=== PATIENT | female | born 2000 | race Hispanic/Latino ===

== ENCOUNTER 2021-01-25 18:54 | Inpatient (IN) | payer OTHER, MEDICAID ==
--- NOTE | 2021-01-25 20:18 | Event Note ---
Date: 01/25/21 Patient presented to triage w c/o ctx q5 minutes since last night. SVE 3.5//- 1 IBOW noted. Pt reports active FM. Will recheck in 1 hour or sooner if needed.
[2021-01-25] MEDS ORDERED: LACTATED RINGERS 1,000 ML ONE (20:51)
[2021-01-25] MEDS ORDERED: miSOPROStol 200 MCG TAB PR PRN (21:13)
[2021-01-25] MEDS ORDERED: LIDOCAINE (2%) 20 MG/1 ML VIAL 20 ML MDV INFILTRATI ONE (21:13)
[2021-01-25] MEDS ORDERED: METHYLERGONOVINE MALEATE 0.2 MG/ML VIAL IM PRN (21:13)
[2021-01-25] MEDS ORDERED: MINERAL OIL 30 ML ORAL LIQD PO PRN (21:13)
[2021-01-25] MEDS ORDERED: fentaNYL 100 MCG/2 ML INJ IV PRN (21:13)
[2021-01-25] MEDS ORDERED: LOPERAMIDE 2 MG CAP PO PRN (21:13)
[2021-01-25] MEDS ORDERED: OXYTOCIN 10 UNIT/1 ML INJ IM PRN (21:13)
[2021-01-25] MEDS ORDERED: BUTORPHANOL 2 MG/1 ML INJ IV PRN ×2 (21:13)
[2021-01-25] MEDS ORDERED: TERBUTALINE 1 MG/1 ML INJ SUB-Q PRN (21:13)
[2021-01-25] MEDS ORDERED: ONDANSETRON 4 MG/2 ML INJ IV PRN (21:13)
[2021-01-25] MEDS ORDERED: CARBOPROST TROMETHAMINE 250 MCG/1 ML INJ IM PRN (21:13)
[2021-01-25] MEDS ORDERED: AMPICILLIN/NS 2 GM/100 ML 2 GM/100 ML BAG IV ONE (21:13)
[2021-01-25] MEDS ORDERED: ACETAMINOPHEN 325 MG TAB PO PRN (21:13)
[2021-01-25] MEDS ORDERED: ePHEDrine SULFATE 50 MG/1 ML INJ IV PRN ×2 (21:13→21:42)
[2021-01-25] MEDS ORDERED: LACTATED RINGERS 1,000 ML IV SCH (21:15)
--- NOTE | 2021-01-25 21:28 | History and Physical Report ---
History of Present Illness Date of examination: 01/25/21 Chief complaint: contractions History of present illness: EDC Confirmation: 01/30/2021 Past History : 2 Term Births: 0 Premature Births: 0 Living Children: 0 Para: 0 Mult. Births: 0 Prev : 0 Prev. attempt? 0 Aborta: 1 Elect. Ab: 0 Spont. Ab: 0 Ectopics: 0 # 1 Delivery date: 06/02/2020 Delivery type: SAB Past Medical History: Reviewed history from 08/14/2020 and no changes required: Anxiety Past Surgical History: Reviewed history from 06/05/2020 and no changes required: Negative Past Surgical History Family History Summary: Reviewed history and no changes required: 08/17/2020 Other Family Member - Has No Family History of Uterine Cancer - Entered On: 08/15/2020 Other Family Member - Has No Family History of Small Bowel Cancer - Entered On: 08/15/2020 Other Family Member - Has No Family History of Stomach Cancer - Entered On: 08/15/2020 Other Family Member - Has No Family History of Pancreatic Cancer - Entered On: 08/15/2020 Other Family Member - Has No Family History of Ovarvian Cancer - Entered On: 08/15/2020 Other Family Member - Has No Family History of Kidney/Urinary Tract Cancer - Entered On: 08/15/2020 Other Family Member - Has No Family History of Spontaneous DVT-PE - Entered On: 08/15/2020 Other Family Member - Has No Family History of Colon Cancer - Entered On: 08/15/2020 Other Family Member - Has No Family History of Brain Cancer - Entered On: 08/15/2020 Other Family Member - Has No Family History of Biliary Tract Cancer - Entered On: 08/15/2020 MGF - Has Family History of Skin Cancer - Entered On: 08/15/2020 MGF - Has Family History of Lung Cancer - Entered On: 08/15/2020 PGM - Has Family History Breast Cancer - Entered On: 08/15/2020 PGM - Has Family History of Cervical Cancer - Entered On: 08/15/2020 Social History: Reviewed history from 08/14/2020 and no changes required: Patient is single Smoking History: Patient has never smoked. 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 Infection History Hx of STD: none HIV Risk Eval: no Personal hx. of genital herpes: no Rash, Viral, or Febrile illness since last LMP? no Varicella/Chicken Pox Status: Immunized TB Risk: no Genetic History Congenital Heart Defect: Mom: no Dad: no Gracia Disease: Mom: no Dad: no Thalassemia Mom: no Dad: no Neural Tube Defect Mom: no Dad: no Down's Syndrome Mom: no Dad: no Brant-Sachs Mom: no Dad: no Sickle Cell Disease/Trait Mom: no Dad: no Hemophilia Mom: no Dad: no Muscular Dystrophy Mom: no Dad: no Cystic Fibrosis Mom: no Dad: no Coffee Chorea Mom: no Dad: no Mental Retardation Mom: no Dad: no Fragile X Mom: no Dad: no Other Genetic/Chromosomal Disorder Mom: no Dad: no Child w/other defect Mom: no Dad: no Enviromental Exposures Enviromental Exposures Reviewed Xray Exposure: no Medication, drug, or alcohol use since LMP: no Chemical/Other Exposure: no Exposure to Cat Liter: no Hx of Parvovirus (Fifth Disease): no Occupational Exposure to Children: none Comments: Working Past History Past Medical History: other (anxiety) Past Surgical History: no surgical history 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: other (see HPI) Family/Genetic History: other (see HPI) Social history: no significant social history - Obstetrical History Expected Date of Delivery: 01/30/21 Actual Gestation: 39 Week(s) 2 Day(s) : 2 Para: 0 Hx # Term Pregnancies: 0 Number of Pregnancies: 0 Spontaneous Abortions: 1 Induced : 0 Number of Living Children: 0 Medications and Allergies Allergies Allergy/AdvReac Type Severity Reaction Status Date / Time No Known Allergies Allergy Unverified 01/25/21 19:34 Active Meds: Active Medications Ephedrine Sulfate (Ephedrine Sulfate 50 Mg/1 Ml Inj) 10 mg IV Q2M PRN PRN Reason: Hypotension Oxytocin/Sodium Chloride (Pitocin/Ns 30 Unit/500ml) 30 units in 500 mls @ 2 mls/hr IV TITR WILDER; Protocol Lactated Ringer's (Lactated Ringers) 1,000 mls @ 125 mls/hr IV DIRECT WILDER Oxytocin/Sodium Chloride (Pitocin/Ns 30 Unit/500ml) 30 units in 500 mls @ 40 mls/hr IV TITR WILDER; Protocol Mineral Oil (Mineral Oil 30 Ml Oral Liqd) 30 ml PO QHS PRN PRN Reason: Constipation Oxytocin (Oxytocin 10 Unit/1 Ml Inj) 10 unit IM ONCE PRN PRN Reason: Uterine Bleeding Terbutaline Sulfate (Terbutaline 1 Mg/1 Ml Inj) 0.25 mg SUB-Q ONCE PRN PRN Reason: Hyperstimulation/Hypertonicity Review of Systems All systems: negative - Vital Signs Vital signs: Vital Signs Temp Pulse Resp BP 98.1 F 67 16 121/73 01/25/21 19:42 01/25/21 19:42 01/25/21 19:42 01/25/21 19:42 Temp Pulse Resp BP Pulse Ox 98.1 F 67 16 121/73 01/25/21 19:42 01/25/21 19:42 01/25/21 19:42 01/25/21 19:42 - Physical Exam Breasts: Positive: normal Cardiovascular: Regular rate Lungs: Positive: Normal air movement Abdomen: Positive: normal appearance, soft Genitourinary (Female): Positive: normal external genitalia, normal perenium Vulva: both: normal Vagina: Positive: normal moisture Uterus: Positive: normal size, normal contour Anus/Rectum: Positive: normal perianal skin Extremities: Positive: normal Deep Tendon Reflex Grade: Normal +2 - Obstetrical FHR: category 1 Uterine Contraction Monitor Mode: External Cervical Dilatation: 5 Cervical Effacement Percentage: 100 station: 0 Uterine Contraction Pattern: Regular Uterine Tone Measurement Phase: Contraction Uterine Contraction Intensity: Strong/Firm Results All other labs normal. Assessment and Plan 20y/o @ 39+2 arrived in active labor, changing her cervix from 3/90/-1 to 5/100/0. GBS +. RH neg - Patient Problems (1) 39 weeks gestation of Current Visit: Yes Status: Acute (2) GBS (group B Streptococcus carrier), +RV culture, currently Current Visit: Yes Status: Acute Plan to address problem: Ampicillin 2gm IVPB q4hr until delivery (3) Active labor at term Current Visit: Yes Status: Acute Plan to address problem: admission orders in EMR Epidural PRN Anticipate (4) Rh negative status during Current Visit: Yes Status: Acute Qualifiers: Trimester: third trimester Qualified Code(s): O26.893 - Other specified related conditions, third trimester; Z67.91 - Unspecified blood type, Rh negative Plan to address problem: Rhogam if indicated
[2021-01-25] MEDS ORDERED: NALOXONE 2 MG/2 ML INJ IV PRN (21:42)
--- NOTE | 2021-01-25 21:42 | Anesthesia Consultation ---
Anesthesia Consult and Med Hx Date of service: 01/25/21 - Airway Anesthetic Teeth Evaluation: Good ROM Head & Neck: Adequate Mental/Hyoid Distance: Adequate Mallampati Class: Class II Intubation Access Assessment: Probably Good - Pulmonary Exam CTA: Yes - Cardiac Exam Cardiac Exam: RRR - Pre-Operative Health Status ASA Pre-Surgery Classification: ASA2 Proposed Anesthetic Plan: Epidural - Pulmonary Hx Asthma: No - Cardiovascular System Hx Hypertension: No - Central Nervous System Hx Seizures: No Hx Psychiatric Problems: No - Endocrine Hx Renal Disease: No Hx Hypothyroidism: No Hx Hyperthyroidism: No - Hematic Hx Anemia: No Hx Sickle Cell Disease: No - Other Systems Hx Alcohol Use: No
[2021-01-25] MEDS ORDERED: fentaNYL-BUPIV 2 MCG/ML-0.125% 200 MCG/100 ML BAG EPIDURAL SCH (22:00)
[2021-01-25] MEDS ORDERED: OXYTOCIN DRIP 30 UNITS/500 ML BAG IV SCH ×2 (22:00)
[2021-01-25 22:14] LABS: Hematocrit 40.7 % (30.3-42.9); Mean Corpuscular HGB Conc 34 % (30-34); Mean Corpuscular Volume 98 fl (79-97); Platelet Count 117 K/mm3 (140-440); Red Blood Count 4.14 M/mm3 (3.65-5.03); Red Cell Distribution Width 12.8 % (13.2-15.2)
--- NOTE | 2021-01-25 23:06 | Progress Note ---
Labor Epidural - Labor Epidural Start Time: 22:56 Stop Time: 23:00 Performed by:: JASMINA SANCHEZ Procedure: Patient is requesting epidural for labor pain. H&P, and labs reviewed. Procedure explained, questions answered, consent obtained. Patient in sitting position with blood pressure cuff and pulse ox on and working. Timeout performed immediately before start of procedure. Sterile chlorahexadine 0.5% prep/drape. 3 mL 1% lidocaine skin wheal at L[3]-L[4]. 18-gauge Airphrametead epidural needle advanced to [id number] with saline at [7] cm. 27-gauge spinal needle advanced until clear, free-flowing CSF. Intrathecal dexmedetomidine [5] mcg administered and needle removed. Epidural catheter advanced to [12] cm, negative aspiration for blood and csf, negative test dose 3 ml 1.5% lidocaine with epinephrine. Sterile steri-strips and tegaderm applied, followed by tape reinforcement. Patient tolerated procedure well.
[2021-01-26] MEDS ORDERED: AMPICILLIN/NS 1 GM/50 ML 1 GM/50 ML BAG IV SCH (02:00)
--- NOTE | 2021-01-26 03:25 | Procedure Note ---
OB Delivery Note - Delivery Date of Delivery: 01/26/21 ( rohit girl - Misti) Electrical Accessories Assembler: DENNISE COFFMAN Estimated blood loss: 200cc - Vaginal Delivery presentation: vertex Delivery position: OA (STEVEN) Intrapartum events: meconium Delivery induction: none Delivery monitor: external FHT, external uterine Route of delivery: Delivery placenta: spontaneous Delivery cord: nuchal cord, 3 umbilical vessels Episiotomy: none Delivery laceration: none Anesthesia: epidural Delivery comments: baby girl birthed over intact perineum, no lacs to repair. Skin to skin while 3 vessel cord continued pulsing. cord blood collected. all counts correct. mother and baby LDR stable. - Infant A at 1 minute: 8 at 5 minutes: 9 Gender: Female
[2021-01-26] MEDS ORDERED: MAGNESIUM HYDROXIDE (MOM) ORAL LIQD UDC PO PRN (05:08)
[2021-01-26] MEDS ORDERED: PROMETHAZINE 25 MG TAB PO PRN (05:08)
[2021-01-26] MEDS ORDERED: diphenhydrAMINE 25 MG CAP PO PRN (05:08)
[2021-01-26] MEDS ORDERED: WITCH HAZEL/ GLYCERIN PAD TP PRN (05:08)
[2021-01-26] MEDS ORDERED: LANOLIN/ZINC/DIMETHICONE (LANSINOH) 7 GM TP PRN (05:08)
[2021-01-26] MEDS ORDERED: ONDANSETRON 4 MG/2 ML INJ IV PRN (05:08)
[2021-01-26] MEDS: IBUPROFEN 600 MG TAB PO SCH ×3 (05:41→18:04)
[2021-01-26] MEDS: DOCUSATE SODIUM 100 MG CAP PO SCH ×2 (10:05→22:13)
[2021-01-26] MEDS: PRENATAL VIT27-FE FUMARATE-FOLIC ACID VIT TAB PO SCH (10:06)
[2021-01-26] MEDS: FERROUS SULFATE 325 MG TAB PO SCH ×2 (10:06→22:13)
--- NOTE | 2021-01-26 13:03 | Progress Note ---
Assessment and Plan Pt sitting up in bed, holding swaddled infant, with family at bedside. Pt reports ambulating, voiding, and eating well; denies complaints at this time. POC and precautions reviewed - Patient Problems (1) (normal spontaneous vaginal delivery) Current Visit: Yes Status: Acute (2) Rh negative status during Current Visit: Yes Status: Acute Qualifiers: Trimester: third trimester Qualified Code(s): O26.893 - Other specified related conditions, third trimester; Z67.91 - Unspecified blood type, Rh negative (3) Thrombocytopenia Current Visit: Yes Status: Acute Subjective - Subjective Date of service: 01/26/21 Principal diagnosis: PP Patient reports: appetite normal, voiding normally, pain well controlled, ambulating normally : doing well Objective - Vital Signs Latest vital signs: Vital Signs Temp Pulse Resp BP BP Pulse Ox 01/26/21 12:02 98.0 F 61 18 137/84 99 01/26/21 07:51 98.1 F 57 L 18 134/79 99 01/26/21 05:25 99.0 F 72 20 133/66 100 01/26/21 04:48 101 H 66 L 01/26/21 04:45 62 133/86 01/26/21 04:44 62 98 01/26/21 04:39 65 97 01/26/21 04:34 64 97 01/26/21 04:30 61 136/86 01/26/21 04:29 58 L 98 01/26/21 04:24 68 99 01/26/21 04:19 71 98 01/26/21 04:15 72 134/84 01/26/21 04:14 70 98 01/26/21 04:09 75 98 01/26/21 04:04 73 98 01/26/21 04:00 66 131/74 01/26/21 03:59 84 98 01/26/21 03:54 91 H 99 01/26/21 03:49 85 97 01/26/21 03:45 118 H 152/96 01/26/21 03:44 123 H 100 01/26/21 03:40 85 94 01/26/21 03:39 78 97 01/26/21 03:34 86 98 01/26/21 03:31 98.2 F 77 16 153/69 01/26/21 03:29 92 H 98 01/26/21 03:24 88 98 01/26/21 03:19 107 H 96 01/26/21 03:14 85 100 01/26/21 03:12 99 H 91 01/26/21 03:09 110 H 97 01/26/21 03:05 73 85 01/26/21 03:04 73 97 01/26/21 02:59 123 H 98 01/26/21 02:54 84 99 01/26/21 02:49 136 H 95 01/26/21 02:44 70 100 01/26/21 02:39 76 100 01/26/21 02:34 63 99 01/26/21 02:29 63 100 01/26/21 02:24 51 L 100 01/26/21 02:19 55 L 100 01/26/21 02:14 61 98 01/26/21 02:09 50 L 100 01/26/21 02:04 56 L 100 01/26/21 01:59 50 L 98 01/26/21 01:54 47 L 99 01/26/21 01:49 50 L 99 01/26/21 01:45 46 L 116/68 01/26/21 01:44 48 L 98 01/26/21 01:39 47 L 99 01/26/21 01:34 47 L 99 01/26/21 01:29 51 L 100 01/26/21 01:24 78 97 01/26/21 01:19 49 L 98 01/26/21 01:16 51 L 136/78 01/26/21 01:14 50 L 99 01/26/21 01:09 51 L 98 01/26/21 01:04 52 L 97 01/26/21 00:59 52 L 98 01/26/21 00:54 57 L 98 01/26/21 00:49 62 98 01/26/21 00:44 78 98 01/26/21 00:39 53 L 97 01/26/21 00:34 54 L 97 01/26/21 00:29 57 L 99 01/26/21 00:24 49 L 114/55 97 01/26/21 00:19 50 L 97 01/26/21 00:15 49 L 125/73 01/26/21 00:14 49 L 97 01/26/21 00:09 49 L 98 01/26/21 00:04 49 L 96 01/25/21 23:59 51 L 97 01/25/21 23:54 51 L 96 01/25/21 23:49 50 L 97 01/25/21 23:46 50 L 101/53 01/25/21 23:44 53 L 97 01/25/21 23:39 51 L 97 01/25/21 23:35 97.4 F L 16 01/25/21 23:34 54 L 102/57 96 01/25/21 23:29 55 L 97 01/25/21 23:24 53 L 97 01/25/21 23:19 58 L 97 01/25/21 23:14 54 L 116/69 97 01/25/21 23:10 56 L 118/64 01/25/21 23:09 56 L 98 01/25/21 23:08 56 L 120/59 01/25/21 23:06 50 L 123/58 01/25/21 23:04 56 L 132/62 99 01/25/21 23:02 64 143/66 01/25/21 22:59 59 L 98 01/25/21 22:57 74 159/65 01/25/21 22:55 59 L 134/73 01/25/21 22:54 62 100 01/25/21 22:49 69 97 01/25/21 22:44 57 L 97 01/25/21 22:39 80 98 01/25/21 22:36 69 94 01/25/21 22:34 63 100 01/25/21 22:29 54 L 96 01/25/21 22:24 72 98 01/25/21 22:09 18 01/25/21 22:08 71 122/68 01/25/21 19:42 98.1 F 67 16 121/73 Intake and Output 01/25/21 01/26/21 01/26/21 23:59 07:59 15:59 Output Total 500 Balance -500 Output: Urine 500 Void 500 Other: Total, Output Amount 500 # Voids Void 1 1 Weight 120 lb Estimated Blood Loss 200 - Exam Breasts: Present: normal Cardiovascular: Present: Regular rate Lungs: Present: Normal air movement Abdomen: Present: normal appearance, soft Vulva: both: normal Uterus: Present: normal, firm, fundal height below umbilicus Extremities: Present: normal - Labs Labs: Abnormal lab results 01/25/21 Range/Units 21:08 WBC 13.5 H (4.5-11.0) K/mm3 MCV 98 H (79-97) fl MCH 34 H (28-32) pg RDW 12.8 L (13.2-15.2) % Plt Count 117 L (140-440) K/mm3
[2021-01-26 16:17] LABS: Hematocrit 37.2 % (30.3-42.9); Hemoglobin 12.7 gm/dl (10.1-14.3)
--- NOTE | 2021-01-26 21:55 | Post Anesthesia Evaluation ---
- Post Anesthesia Evaluation Patient Participated: Yes Airway Patent: Yes Stable Respiratory Function: Yes Nausea/Vomiting: No Temp > 96.8F: Yes Pain Manageable: Yes Adequeate Hydration: Yes Anesthesia Complications: No Block Receding Appropriately: Yes
[2021-01-27] MEDS ORDERED: TETANUS,DIPH,PERTUSS(ACELL) VACCINE 0.5 ML SYRINGE IM ONE (06:00)
[2021-01-27] MEDS: DOCUSATE SODIUM 100 MG CAP PO SCH ×2 (09:36→23:03)
[2021-01-27] MEDS: FERROUS SULFATE 325 MG TAB PO SCH ×2 (09:36→23:02)
[2021-01-27] MEDS: PRENATAL VIT27-FE FUMARATE-FOLIC ACID VIT TAB PO SCH (09:36)
[2021-01-27] MEDS: IBUPROFEN 600 MG TAB PO SCH ×2 (09:37→23:02)
--- NOTE | 2021-01-27 11:15 | Discharge Summary ---
Providers - Providers Date of Admission: 01/25/21 21:13 Date of discharge: 01/27/21 (desires d/c home) Attending physician: MORIS JUAREZ 01/26/21 05:08 Consult to Grain [employer] [CONS] Routine Reason For Exam: assistance with , SNS Primary care physician: MORIS JUAREZ Hospitalization Reason for admission: Labor Condition: Good Pertinent studies: post delivery H&H 12.7/37.2 Procedures: Hospital course: uncomplicated and course Disposition: DC-01 TO HOME OR SELFCARE Final Discharge Diagnosis (Prints w/discharge instructions): Time spent for discharge: 15 - Discharge Diagnoses (1) (normal spontaneous vaginal delivery) Status: Acute Core Measure Documentation - Palliative Care Palliative Care/ Comfort Measures: Not Applicable - Core Measures Any of the following diagnoses?: none Exam - Constitutional Vitals: Temp Pulse Resp BP Pulse Ox 97.9 F 66 16 126/84 97 01/27/21 07:59 01/27/21 07:59 01/27/21 07:59 01/27/21 07:59 01/27/21 07:59 General appearance: Present: no acute distress, well-nourished - EENT Eyes: Present: PERRL ENT: hearing intact, clear oral mucosa - Neck Neck: Present: supple, normal ROM - Respiratory Respiratory effort: normal Respiratory: bilateral: CTA - Cardiovascular Rhythm: regular Heart Sounds: Absent: rub, click - Extremities Extremities: No edema Peripheral Pulses: within normal limits - Abdominal General gastrointestinal: Present: soft, non-tender, non-distended, normal bowel sounds Female genitourinary: Present: normal - Integumentary Integumentary: Present: clear, warm, dry - Musculoskeletal Musculoskeletal: gait normal, strength equal bilaterally - Psychiatric Psychiatric: appropriate mood/affect, intact judgment & insight - Neurologic Neurologic: CNII-XII intact, moves all extremities - Additional findings Additional findings: lochia scant, fundus firm, VSSAF, Plan Activity: no restrictions Diet: regular Follow up with: MORIS JUAREZ MD [Primary Care Provider] - 02/26/21 (Congratulations!! Please call [phone] to schedule your visit in 4 weeks. Call for any questions or concerns. )
[2021-01-27] MEDS ORDERED: LACTATED RINGERS 1,000 ML ONE (14:38)
[2021-01-27] MEDS ORDERED: MAGNESIUM SULFATE 40GM/1000ML 40 GM/1,000 ML BAG IV ONE (14:39)
[2021-01-27] MEDS ORDERED: MAGNESIUM SULFATE 4 GM/100 ML BAG IV ONE ×2 (14:39→15:00)
[2021-01-27] MEDS ORDERED: LACTATED RINGERS 1,000 ML IV SCH (14:45)
--- NOTE | 2021-01-27 14:53 | Event Note ---
Date: 01/27/21 received call from nurse that pt's blood pressure is elevated 160's/90's- 100's. Pt reported some chest heaviness earlier that has since resolved. She denies CLEMENT, visual changes or epigastric pain. Discussed with patient concern over pre-e. will cancel discharge and transfer patient to L&D for mag sulfate x24 hrs. pre-e labs ordered. all questions addressed, pt verbalizes understanding. L&D charge nurse informed of need to transfer.
[2021-01-27 16:09] LABS: Hematocrit 39.4 % (30.3-42.9); Hemoglobin 13.4 gm/dl (10.1-14.3); Mean Corpuscular HGB Conc 34 % (30-34); Mean Corpuscular Volume 99 fl (79-97); Platelet Count 107 K/mm3 (140-440); Red Blood Count 3.98 M/mm3 (3.65-5.03); Red Cell Distribution Width 13.1 % (13.2-15.2)
[2021-01-27 16:12] LABS: Alanine Aminotransferase 8 units/L (7-56); Uric Acid 5.1 mg/dL (3.5-7.6)
[2021-01-27] MEDS: MAGNESIUM SULFATE 40GM/1000ML 40 GM/1,000 ML BAG IV SCH (17:20)
[2021-01-28] MEDS: IBUPROFEN 600 MG TAB PO SCH ×3 (05:48→18:06)
[2021-01-28] MEDS: FERROUS SULFATE 325 MG TAB PO SCH (10:52)
[2021-01-28] MEDS: DOCUSATE SODIUM 100 MG CAP PO SCH (10:53)
[2021-01-28] MEDS: PRENATAL VIT27-FE FUMARATE-FOLIC ACID VIT TAB PO SCH (10:53)
--- NOTE | 2021-01-28 13:00 | Progress Note ---
Assessment and Plan patient reports feeling well, no complaints. She denies CLEMENT, visual changes or epigastric pain. b/p's much improved over yesterday. Mag level this AM 7.4, mag decreased to 1 gm/hr. Will continue mag sulfate until 1600 and consider d/c home this evening if b/p's remain NL. Pt will keep appointment Friday for blood pressure check. - Patient Problems (1) (normal spontaneous vaginal delivery) Current Visit: Yes Status: Acute (2) Pre-eclampsia in period Current Visit: Yes Status: Acute (3) Anxiety Current Visit: Yes Status: Acute Plan to address problem: hx Anxiety, previous use of Paxil Discussed restarting medication risks/benefits reviewed with , patient would like to restart medication. Subjective - Subjective Date of service: 01/28/21 Principal diagnosis: day #3; pre-e Interval history: EDC Confirmation: 01/30/2021 Past History : 2 Term Births: 0 Premature Births: 0 Living Children: 0 Para: 0 Mult. Births: 0 Prev : 0 Prev. attempt? 0 Aborta: 1 Elect. Ab: 0 Spont. Ab: 0 Ectopics: 0 # 1 Delivery date: 06/02/2020 Delivery type: SAB Past Medical History: Reviewed history from 08/14/2020 and no changes required: Anxiety Past Surgical History: Reviewed history from 06/05/2020 and no changes required: Negative Past Surgical History Family History Summary: Reviewed history and no changes required: 08/17/2020 Other Family Member - Has No Family History of Uterine Cancer - Entered On: 08/15/2020 Other Family Member - Has No Family History of Small Bowel Cancer - Entered On: 08/15/2020 Other Family Member - Has No Family History of Stomach Cancer - Entered On: 08/15/2020 Other Family Member - Has No Family History of Pancreatic Cancer - Entered On: 08/15/2020 Other Family Member - Has No Family History of Ovarvian Cancer - Entered On: 08/15/2020 Other Family Member - Has No Family History of Kidney/Urinary Tract Cancer - Entered On: 08/15/2020 Other Family Member - Has No Family History of Spontaneous DVT-PE - Entered On: 08/15/2020 Other Family Member - Has No Family History of Colon Cancer - Entered On: 08/15/2020 Other Family Member - Has No Family History of Brain Cancer - Entered On: 08/15/2020 Other Family Member - Has No Family History of Biliary Tract Cancer - Entered On : 08/15/2020 MGF - Has Family History of Skin Cancer - Entered On: 08/15/2020 MGF - Has Family History of Lung Cancer - Entered On: 08/15/2020 PGM - Has Family History Breast Cancer - Entered On: 08/15/2020 PGM - Has Family History of Cervical Cancer - Entered On: 08/15/2020 Social History: Reviewed history from 08/14/2020 and no changes required: Patient is single Smoking History: Patient has never smoked. 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 Infection History Hx of STD: none HIV Risk Eval: no Personal hx. of genital herpes: no Rash, Viral, or Febrile illness since last LMP? no Varicella/Chicken Pox Status: Immunized TB Risk: no Genetic History Congenital Heart Defect: Mom: no Dad: no Gracia Disease: Mom: no Dad: no Thalassemia Mom: no Dad: no Neural Tube Defect Mom: no Dad: no Down's Syndrome Mom: no Dad: no Brant-Sachs Mom: no Dad: no Sickle Cell Disease/Trait Mom: no Dad: no Hemophilia Mom: no Dad: no Muscular Dystrophy Mom: no Dad: no Cystic Fibrosis Mom: no Dad: no Ciales Chorea Mom: no Dad: no Mental Retardation Mom: no Dad: no Fragile X Mom: no Dad: no Other Genetic/Chromosomal Disorder Mom: no Dad: no Child w/other defect Mom: no Dad: no Enviromental Exposures Enviromental Exposures Reviewed Xray Exposure: no Medication, drug, or alcohol use since LMP: no Chemical/Other Exposure: no Exposure to Cat Liter: no Hx of Parvovirus (Fifth Disease): no Occupational Exposure to Children: none Comments: Working Patient reports: appetite normal, pain well controlled : doing well, bottle feeding (breast and bottle feeding) Objective - Vital Signs Latest vital signs: Vital Signs Temp Pulse Resp BP BP Pulse Ox 01/28/21 12:51 93 H 98 01/28/21 12:46 90 98 01/28/21 12:41 98 H 97 01/28/21 12:38 97.7 F 18 98 01/28/21 12:36 97 H 99 01/28/21 12:34 18 01/28/21 12:31 93 H 99 01/28/21 12:26 87 99 01/28/21 12:21 81 99 01/28/21 12:19 89 131/89 01/28/21 12:16 85 99 01/28/21 12:11 87 99 01/28/21 12:06 87 98 01/28/21 12:01 85 99 01/28/21 11:56 85 98 01/28/21 11:51 87 99 01/28/21 11:46 93 H 99 01/28/21 11:41 94 H 98 01/28/21 11:36 86 99 01/28/21 11:31 79 98 01/28/21 11:26 79 98 01/28/21 11:21 88 99 01/28/21 11:19 82 121/82 01/28/21 11:16 77 98 01/28/21 11:11 79 99 01/28/21 11:06 77 99 01/28/21 11:01 83 99 01/28/21 10:56 79 99 01/28/21 10:51 74 98 01/28/21 10:46 73 99 01/28/21 10:41 81 99 01/28/21 10:36 78 98 01/28/21 10:31 76 98 01/28/21 10:26 79 98 01/28/21 10:21 77 98 01/28/21 10:19 83 123/61 01/28/21 10:16 81 98 01/28/21 10:11 82 98 01/28/21 10:06 91 H 98 01/28/21 10:01 80 98 01/28/21 09:56 85 98 01/28/21 09:51 80 98 01/28/21 09:46 79 98 01/28/21 09:41 75 98 01/28/21 09:36 75 98 01/28/21 09:31 79 98 01/28/21 09:26 85 98 01/28/21 09:21 81 98 01/28/21 09:19 83 117/66 01/28/21 09:16 87 99 01/28/21 09:11 87 99 01/28/21 09:06 88 99 01/28/21 09:01 91 H 99 01/28/21 08:56 84 98 01/28/21 08:51 81 99 01/28/21 08:46 77 98 01/28/21 08:41 78 98 01/28/21 08:36 78 98 01/28/21 08:31 81 99 01/28/21 08:26 74 98 01/28/21 08:21 74 98 01/28/21 08:19 70 121/74 01/28/21 08:16 71 98 01/28/21 08:11 73 98 01/28/21 08:06 77 98 01/28/21 08:01 74 98 01/28/21 08:00 97.6 F 16 98 01/28/21 07:56 89 97 01/28/21 07:51 73 97 01/28/21 07:46 74 97 01/28/21 07:41 75 97 01/28/21 07:36 74 97 01/28/21 07:31 74 97 01/28/21 07:26 73 98 01/28/21 07:21 72 98 01/28/21 07:19 72 119/77 01/28/21 07:16 75 97 01/28/21 07:11 77 97 01/28/21 07:06 78 98 01/28/21 07:01 77 98 01/28/21 06:56 80 98 01/28/21 06:51 79 97 01/28/21 06:46 74 98 01/28/21 06:41 72 98 01/28/21 06:36 75 98 01/28/21 06:31 77 98 01/28/21 06:26 85 99 01/28/21 06:21 93 H 99 01/28/21 06:19 80 136/78 01/28/21 06:16 75 98 01/28/21 06:11 78 98 01/28/21 06:06 79 98 01/28/21 06:00 92 H 99 01/28/21 05:56 88 99 01/28/21 05:51 87 99 01/28/21 05:46 89 99 01/28/21 05:41 90 99 01/28/21 05:35 91 H 99 01/28/21 05:31 78 98 01/28/21 05:26 82 98 01/28/21 05:21 90 99 01/28/21 05:19 80 134/82 01/28/21 05:16 73 98 01/28/21 05:11 76 99 01/28/21 05:06 99 H 99 01/28/21 05:00 98 H 100 01/28/21 04:55 81 100 01/28/21 04:50 91 H 100 01/28/21 04:46 88 100 01/28/21 04:41 73 99 01/28/21 04:36 72 99 01/28/21 04:31 73 99 01/28/21 04:25 76 99 01/28/21 04:20 87 99 01/28/21 04:19 98 H 128/88 01/28/21 04:15 75 99 01/28/21 04:10 76 99 01/28/21 04:05 79 99 01/28/21 04:00 82 98 01/28/21 03:55 104 H 98 01/28/21 03:50 89 99 01/28/21 03:45 84 98 01/28/21 03:40 91 H 99 01/28/21 03:35 87 99 01/28/21 03:30 77 99 01/28/21 03:25 72 99 01/28/21 03:20 71 99 01/28/21 03:19 71 113/64 01/28/21 03:15 70 99 01/28/21 03:10 71 99 01/28/21 03:05 80 98 01/28/21 03:00 74 100 01/28/21 02:55 68 99 01/28/21 02:50 68 99 01/28/21 02:45 68 99 01/28/21 02:40 68 99 01/28/21 02:35 67 99 01/28/21 02:30 70 98 01/28/21 02:25 70 98 01/28/21 02:20 66 99 01/28/21 02:19 71 120/69 01/28/21 02:15 69 98 01/28/21 02:10 70 98 01/28/21 02:05 70 98 01/28/21 02:00 70 98 01/28/21 01:55 72 98 01/28/21 01:50 77 98 01/28/21 01:45 74 98 01/28/21 01:40 90 98 01/28/21 01:35 93 H 98 01/28/21 01:30 79 98 01/28/21 01:25 66 98 01/28/21 01:20 67 98 01/28/21 01:19 66 112/65 01/28/21 01:15 67 99 01/28/21 01:10 68 98 01/28/21 01:05 84 100 01/28/21 01:00 73 98 01/28/21 00:55 78 98 01/28/21 00:50 82 118/68 99 01/28/21 00:45 85 99 01/28/21 00:40 72 98 01/28/21 00:35 75 98 01/28/21 00:30 73 99 01/28/21 00:25 84 99 01/28/21 00:20 70 98 01/28/21 00:19 71 122/67 01/28/21 00:15 71 98 01/28/21 00:10 69 98 01/28/21 00:05 77 98 01/28/21 00:00 73 98 01/27/21 23:55 74 98 01/27/21 23:50 77 98 01/27/21 23:45 79 98 01/27/21 23:40 81 98 01/27/21 23:35 80 98 01/27/21 23:30 83 98 01/27/21 23:25 88 99 01/27/21 23:20 96 H 99 01/27/21 23:19 93 H 147/86 01/27/21 23:15 92 H 99 01/27/21 23:10 100 H 99 01/27/21 23:05 94 H 99 01/27/21 23:00 98.3 F 101 H 99 01/27/21 22:55 95 H 98 01/27/21 22:50 103 H 98 01/27/21 22:45 98 H 99 01/27/21 22:40 94 H 99 01/27/21 22:35 97 H 99 01/27/21 22:30 98 H 98 01/27/21 22:25 101 H 99 01/27/21 22:20 96 H 99 01/27/21 22:19 98 H 147/89 01/27/21 22:15 95 H 99 01/27/21 22:10 99 H 99 01/27/21 22:05 102 H 99 01/27/21 22:00 98 H 99 01/27/21 21:55 96 H 99 01/27/21 21:50 99 H 99 01/27/21 21:45 91 H 99 01/27/21 21:40 92 H 100 01/27/21 21:35 105 H 99 01/27/21 21:30 93 H 100 01/27/21 21:25 97 H 99 01/27/21 21:20 92 H 99 01/27/21 21:19 89 138/91 01/27/21 21:15 90 99 01/27/21 21:10 101 H 100 01/27/21 21:05 92 H 100 01/27/21 21:00 83 100 01/27/21 20:55 97 H 100 01/27/21 20:50 98 H 99 01/27/21 20:45 93 H 100 01/27/21 20:40 96 H 99 01/27/21 20:35 90 100 01/27/21 20:30 86 100 01/27/21 20:25 73 99 01/27/21 20:20 74 100 01/27/21 20:19 77 132/78 01/27/21 20:15 92 H 100 01/27/21 20:10 79 99 01/27/21 20:05 82 100 01/27/21 20:00 96 H 100 01/27/21 19:55 87 99 01/27/21 19:50 86 99 01/27/21 19:45 83 99 01/27/21 19:40 90 99 01/27/21 19:35 86 100 01/27/21 19:30 86 99 01/27/21 19:25 91 H 100 01/27/21 19:20 89 100 01/27/21 19:19 81 132/73 01/27/21 19:17 98.0 F 01/27/21 19:15 84 100 01/27/21 19:10 94 H 99 01/27/21 19:05 72 99 01/27/21 19:00 77 99 01/27/21 18:59 97.9 F 76 12 135/83 99 01/27/21 18:57 76 135/83 01/27/21 18:55 77 100 01/27/21 18:50 74 99 01/27/21 18:45 61 98 01/27/21 18:40 60 98 01/27/21 18:35 66 99 01/27/21 18:30 69 99 01/27/21 18:25 80 99 01/27/21 18:20 75 99 01/27/21 18:15 81 99 01/27/21 18:10 75 99 01/27/21 18:06 74 138/94 01/27/21 18:05 76 99 01/27/21 18:00 72 18 99 01/27/21 17:55 81 100 01/27/21 17:51 68 137/87 01/27/21 17:50 69 100 01/27/21 17:45 80 99 01/27/21 17:40 75 99 01/27/21 17:36 69 137/90 01/27/21 17:35 78 99 01/27/21 17:30 78 99 01/27/21 17:25 88 98 01/27/21 17:20 71 99 01/27/21 17:18 69 148/88 01/27/21 17:15 77 99 01/27/21 17:13 86 139/80 01/27/21 17:10 92 H 99 01/27/21 17:08 116 H 145/98 01/27/21 17:05 79 100 01/27/21 17:03 60 141/86 01/27/21 17:00 98.5 F 79 16 141/86 99 01/27/21 16:58 61 143/86 01/27/21 16:55 61 99 01/27/21 16:53 62 148/88 01/27/21 16:50 64 100 01/27/21 16:45 68 158/97 100 01/27/21 16:40 64 100 01/27/21 16:35 70 99 01/27/21 16:30 63 99 01/27/21 16:29 61 174/107 01/27/21 16:25 64 100 01/27/21 16:20 60 100 01/27/21 16:15 85 100 01/27/21 16:14 63 186/108 Intake and Output 01/27/21 01/28/21 01/28/21 23:59 07:59 15:59 Intake Total 970.833 Output Total 1730 1550 1000 Balance -1730 -1550 -29.167 Intake: IV 970.833 MAGNESIUM SULFATE 40GM/ 970.833 1000ML 40 gm In 1,000 ml @ 2 GM/HR 50 mls/hr IV DIRECT WILDER Rx#:[id number] Output: Urine 1730 1550 1000 Indwelling Catheter 1100 1200 1000 Void 630 350 Other: Total, Output Amount 250 250 250 - Exam Breasts: Present: normal Cardiovascular: Present: Regular rate Lungs: Present: Clear to auscultation, Normal air movement Abdomen: Present: normal appearance, soft, normal bowel sounds Vulva: both: normal Uterus: Present: normal, firm, fundal height below umbilicus Extremities: Present: normal Deep Tendon Reflex Grade: Normal +2 - Labs Labs: Abnormal lab results 01/27/21 01/27/21 01/28/21 Range/Units 15:13 15:13 00:24 WBC 15.8 H (4.5-11.0) K/mm3 MCV 99 H (79-97) fl MCH 34 H (28-32) pg RDW 13.1 L (13.2-15.2) % Plt Count 107 L (140-440) K/mm3 Creatinine 0.5 L (0.6-1.2) mg/dL Magnesium 6.50 H (1.7-2.3) mg/dL Lactate Dehydrogenase 232 H (91-180) units/L 01/28/21 01/28/21 Range/Units 07:53 12:04 WBC (4.5-11.0) K/mm3 MCV (79-97) fl MCH (28-32) pg RDW (13.2-15.2) % Plt Count (140-440) K/mm3 Creatinine (0.6-1.2) mg/dL Magnesium 7.40 H 7.50 H (1.7-2.3) mg/dL Lactate Dehydrogenase (91-180) units/L
[2021-01-28] MEDS: MAGNESIUM SULFATE 40GM/1000ML 40 GM/1,000 ML BAG IV SCH (13:49)
[2021-01-28] MEDS ORDERED: PARoxetine 20 MG TAB PO SCH (14:00)
--- NOTE | 2021-01-28 17:49 | Event Note ---
Date: 01/28/21 pt to be d/c'd home, rx paxil and labetalol sent to pharmacy. Pt has scheduled f/t Friday. Patient mother has blood pressure cuff and patient will check b/p twice a day and call for any blood pressures >140/90. Plan reviewed with Dr. Arshad.
[2021-01-28 18:21] VITALS: BP 141/77
== END 2021-01-28 18:59 | disposition home or self-care (01) | DRG 807 ==
LOC: TRG 18:54 → APU 19:27 → LD 21:13 → TRG 21:13 → OB 01-26 05:00 → LD 01-27 16:12
PROVIDERS: ADMIT Obstetrics & Gynecology; ATTEND Obstetrics & Gynecology
PROC: 3E0R3BZ Introduction of Anesthetic Agent into Spinal Canal, Percutaneous Approach (ICD-10-PCS; 2021-01-25)
PROC: 00HU33Z Insertion of Infusion Device into Spinal Canal, Percutaneous Approach (ICD-10-PCS; 2021-01-25)
PROC: 10E0XZZ Delivery of Products of Conception, External Approach (ICD-10-PCS; principal; 2021-01-26)
DX: O99.824 Streptococcus B carrier state complicating childbirth (principal); Z37.0 Single live birth; Z3A.39 39 weeks gestation of pregnancy; O77.0 Labor and delivery complicated by meconium in amniotic fluid; O99.12 Other diseases of the blood and blood-forming organs and certain disorders involving the immune mechanism complicating childbirth; D69.6 Thrombocytopenia, unspecified; Z20.822 Contact with and (suspected) exposure to COVID-19
CPT/HCPCS: 36415; 59025; 82565; 83615; 83735; 84450; 84460; 84550; 85014; 85018; 85027; 86592; 86850; 86870; 86900; 86901; 96360; 99211; G0378; G0463; J0290; J3010; J3475; J7120; U0003